=== PATIENT | female | born 1965 | race Caucasian/White ===

== ENCOUNTER 2019-05-25 04:52 | Day surgery (SDC) | payer OTHER ==
[2019-05-21 17:48] VITALS: BMI 26.5
[2019-05-25] MEDS ORDERED: fentaNYL CITRATE 250 MCG/5 ML VIAL ONE (07:29)
[2019-05-25] MEDS ORDERED: PROPOFOL 20 ML ONE ×6 (07:29→09:48)
[2019-05-25] MEDS ORDERED: ROCURONIUM BROMIDE 50 MG/5 ML SYRINGE ONE ×2 (07:29→08:42)
[2019-05-25] MEDS ORDERED: SUCCINYLCHOLINE CHLORIDE 200 MG/10 ML SYRINGE ONE (07:30)
[2019-05-25] MEDS ORDERED: ROPIVACAINE HCL 0.5% 30ML VIAL ONE (07:31)
[2019-05-25] MEDS ORDERED: MIDAZOLAM HCL 2 MG/2 ML SINGLE DOSE VIAL ONE ×3 (07:32→07:39)
[2019-05-25] MEDS ORDERED: PHENAZOPYRIDINE HCL 100 MG TABLET (FP) PO ONE (07:47)
[2019-05-25] MEDS ORDERED: CEFAZOLIN 2 GM/D5W 2 GM/50 ML ML IVPB ONE (07:47)
--- NOTE | 2019-05-25 07:52 | HP ---
History & Physical Update - History History: No Change - Physical Physical: No Change - Assessment Assessment: No Change - Plan Plan: No Change (Full H&P in paper chart from 05/21/19)
[2019-05-25] MEDS ORDERED: DESFLURANE GAS 240 ML BOTTLE IH ONE (08:05)
[2019-05-25] MEDS ORDERED: ceFAZolin 2 GRAM PREMIX BAG IVPB ONE (08:20)
[2019-05-25] MEDS ORDERED: DEXAMETHASONE SOD PHOSPHATE 4 MG/1 ML VIAL ONE ×2 (08:42→09:48)
[2019-05-25] MEDS ORDERED: GLYCOPYRROLATE 0.2 MG/1 ML VIAL ONE (08:42)
[2019-05-25] MEDS ORDERED: LIDOCAINE HCL/PF 2% SDV 5ML VIAL ONE ×2 (08:42→09:40)
[2019-05-25] MEDS ORDERED: ceFAZolin SODIUM 1 GM VIAL ONE (08:42)
[2019-05-25] MEDS ORDERED: KETOROLAC TROMETHAMINE 30 MG/1 ML VIAL ONE (08:42)
[2019-05-25] MEDS ORDERED: NEOSTIGMINE METHYLSULFATE 0.5 MG/ML - 10 ML MDV ONE (09:35)
[2019-05-25] MEDS ORDERED: ONDANSETRON 4 MG/2 ML VIAL IVPUSH PRN (10:01)
[2019-05-25] MEDS ORDERED: oxyCODONE HCL 5 MG TABLET PO PRN ×4 (10:01→10:50)
[2019-05-25] MEDS ORDERED: DOCUSATE SODIUM 100 MG CAPSULE (FP) PO PRN (10:01)
[2019-05-25] MEDS ORDERED: ACETAMINOPHEN 325 MG TABLET (FP) PO PRN (10:01)
[2019-05-25] MEDS ORDERED: BISACODYL 5 MG TABLET.DR (FP) PO PRN (10:01)
--- NOTE | 2019-05-25 10:10 | OP ---
<Harpreet Vitale - Last Filed: 05/25/19 10:04> Operative Note - Note: Operative Date: 05/25/19 Pre-Operative Diagnosis: Fibroid uterus Operation: Robotic assisted hysterectomy and bilateral salpingectomy Post-Operative Diagnosis: Same as Pre-op Surgeon: Kerrie Miller Pet Counselor: Harpreet Vitale Anesthesiologist/PACKAGE WORKER: Jean Carlos Barton Anesthesia: General Estimated Blood Loss (mls): 100 Operative Report Dictated: Yes <Kerrie Miller - Last Filed: 05/26/19 08:39> Operative Note - Note: Operation: Robotic laparosacopic Total Hysterectomy. Bilateral salpingectomy Operative Report Dictated: Yes
[2019-05-25] MEDS ORDERED: traMADol HCL 50 MG TABLET PO PRN (10:50)
[2019-05-25] MEDS ORDERED: LACTATED RINGERS SOLUTION 1,000 ML IV SCH (11:00)
--- NOTE | 2019-05-25 15:53 | SURG ---
Surgery Guidance Services Coordinator Note Guidance Services Coordinator: Harpreet Vitale PA-C Date of Service: 05/25/19 Diagnosis: Fibroid uterus Procedure: Robotic assisted hysterectomy and bilateral salpingectomy I was present for the entirety of the operative procedure. For further detail, please refer to operative report. Visit type - Case Type Case Type: Scheduled - Emergency Emergency Visit: No - New patient This patient is new to me today: Yes Date on this admission: 05/25/19 - Critical Care Critical Care patient: No
[2019-05-25] MEDS: CEFAZOLIN 1 GM/D5W 1 GM/50 ML BAG IVPB SCH (17:45)
[2019-05-25] MEDS ORDERED: CEFAZOLIN 1 GM in DEXTROSE 5%-WATER - 50 ML IVPB SCH (18:00)
[2019-05-25 18:10] LABS: HEMATOCRIT 34.6 % (32.4-45.2); HEMOGLOBIN 11.5 GM/dL (10.7-15.3); MCH 33.7 pg (25.7-33.7); MCHC 33.2 g/dl (32.0-36.0); MEAN CELL VOLUME 101.6 fl (80-96); MEAN PLT VOLUME 8.4 fl (7.5-11.1); PLATELET COUNT 214 K/MM3 (134-434); RDW 13.4 % (11.6-15.6); WHITE BLOOD COUNT 7.9 K/mm3 (4.0-10.0)
[2019-05-25] MEDS: IBUPROFEN 800 MG/8 ML IJ IVPB PRN (18:24)
[2019-05-25 18:27] LABS: BLOOD UREA NITROGEN 12.5 mg/dL (7-18); CALCIUM 8.6 mg/dL (8.5-10.1); CREATININE 0.9 mg/dL (0.55-1.3); POTASSIUM 4.6 mmol/L (3.5-5.1)
[2019-05-26] MEDS: CEFAZOLIN 1 GM/D5W 1 GM/50 ML BAG IVPB SCH ×2 (01:17→09:35)
[2019-05-26] MEDS: IBUPROFEN 800 MG/8 ML IJ IVPB PRN (04:42)
[2019-05-26] MEDS: SIMETHICONE 80 MG TAB.CHEW (FP) PO PRN ×2 (06:28→09:35)
[2019-05-26 08:27] LABS: HEMATOCRIT 29.7 % (32.4-45.2); HEMOGLOBIN 10.1 GM/dL (10.7-15.3); MCH 34.1 pg (25.7-33.7); MEAN CELL VOLUME 100.4 fl (80-96); MEAN PLT VOLUME 8.2 fl (7.5-11.1); PLATELET COUNT 191 K/MM3 (134-434); RBC 2.96 M/mm3 (3.60-5.2); RDW 12.9 % (11.6-15.6); WHITE BLOOD COUNT 8.4 K/mm3 (4.0-10.0)
--- NOTE | 2019-05-26 08:29 | DS ---
"Physical Exam: SUBJECTIVE: Patient seen and examined this am. Tolerating a clear liquid diet, no nausea or emesis. Passing flatus. Mcconnell removed this am and she is due to void. OBJECTIVE: Vital Signs Period Temp Pulse Resp BP Sys/Cheng Pulse Ox Last 24 Hr 98 F-99.1 F 64-92 10-22 104-140/54-81 99-100 PHYSICAL EXAM GENERAL: The patient is awake, alert, and fully oriented, in no acute distress. LUNGS: Breath sounds equal, clear to auscultation bilaterally, no wheezes, no crackles, no accessory muscle use. HEART: Regular rate and rhythm, S1, S2 without murmur, rub or gallop. ABDOMEN: Soft, nondistended, Incisional tenderness. Inc/c/d/i with bandaids. EXTREMITIES: 2+ pulses, warm, well-perfused, no edema. no calf tenderness or swelling noted. LABS Laboratory Results - last 24 hr 05/25/19 05/25/19 17:45 17:45 WBC 7.9 RBC 3.40 L Hgb 11.5 Hct 34.6 MCV 101.6 H MCH 33.7 MCHC 33.2 RDW 13.4 Plt Count 214 D MPV 8.4 Sodium 138 Potassium 4.6 Chloride 105 Carbon Dioxide 27 Anion Gap 6 L BUN 12.5 Creatinine 0.9 Est GFR (CKD-EPI)AfAm 82.84 Est GFR (CKD-EPI)NonAf 71.48 Random Glucose 198 H Calcium 8.6 HOSPITAL COURSE: The patient was admitted to the Med-Surg Unit after an elective repair of her leiomyomas/pelvic pain. Now, s/p robotic hysterectomy and bilateral salpingectomy. Pain management was achieved with a narcotic and non-narcotic oral and IV regimen. POD #1, the patient passed flatus and diet was advanced. Hemoglobin and hematocrit were monitored as well as vitals and remained stable throughout admission. Ute-operative IV ABX were administered. DVT prophylaxis was achieved with Lovenox 40mg qd, SCDs and early ambulation. The patient ambulated the halls without issue. Narcotic scripts were checked with [facility] [employer] prior to escribe. The discharge instructions and an oral pain management plan were reviewed with the patient. All questions answered. Above plan discussed with Dr. Miller and agreed. Date of Admission:05/25/19 Date of Discharge: 05/26/19 Minutes to complete discharge: 20 Discharge Summary Problems reviewed: Yes Reason For Visit: FIBROIDS/PELVIC PAIN Condition: Stable - Instructions Diet, Activity, Other Instructions: Dr. Kerrie Miller Printing Plate Clerk discharge instructions Physical activity Resume your normal everyday activity as tolerated no heavy lifting or exercise until seen by your surgeon. You may walk unlimited simi of and climb stairs. You may resume driving the car when you feel safe and comfortable behind the wheel. No sexual activity as instructed by Dr. Miller. Wound care If you have a bandage, leave it on, and keep dry for 48-72 hours. After that time discard the outer bandage. If they are tapes on the skin under the out of bandage leave them in place. They will peel off in the next 7 to 10 days. Do Not Peel them off. You may shower the day after surgery. If there are tapes present on the skin, you may shower over them. Diet There are no dietary restrictions. Eat healthy, high-fiber foods. Drink 6 to 8 glasses of liquid each day. This will assist in keeping your bowels are regular. Pain management You may take Ibuprofen (for example, Motrin, Advil etc.) from my pain prescription medication is ordered should be taken as prescribed for moderate to severe pain. Call Dr. Miller for any of the following: Severe pain not relieved by medication Fever of 101 or higher Excessive bleeding or drainage on dressing Inability to urinate Call the office at [phone] for an appointment in seven days. This report was requested by: Lenore Park | Reference #: [id number] Referrals: Kerrie Miller MD [Staff Physician] - Disposition: HOME - Home Medications Comprehensive Discharge Medication List: Ambulatory Orders Lisinopril [Zestril] 40 mg PO DAILY 05/21/19 Oxycodone HCl/Acetaminophen [Percocet 5-325 mg Tablet] 1 - 2 tab PO Q6H PRN #20 tab MDD 8 05/26/19 Prescription Drug Monitoring Program (I-STOP) results: I-STOP reviewed and no issues identified This patient is new to me today: Yes Date on this admission: 05/26/19 Emergency Visit: No Critical Care patient: No - Discharge Referral Referred to [facility] Med [facility] No"
[2019-05-26 08:58] LABS: BLOOD UREA NITROGEN 9.2 mg/dL (7-18); CALCIUM 8.4 mg/dL (8.5-10.1); CREATININE 0.7 mg/dL (0.55-1.3); POTASSIUM 3.7 mmol/L (3.5-5.1)
[2019-05-26] MEDS ORDERED: ENOXAPARIN NA (PORCINE) 40 MG/0.4 ML DISP.SYRIN SQ SCH (10:00)
[2019-05-26] MEDS ORDERED: LISINOPRIL 20 MG TABLET (FP) PO SCH (10:00)
[2019-05-26 10:50] VITALS: BP 127/67; PULSE 78; TEMP 98.3
--- NOTE | 2019-05-26 10:50 | PN ---
HC Provider Note Provider Note: Anesthesia Post Op Note Pt s/p GRTA w/ b/l TAP block for robotic MAXWELL Pt awake alert in NAD Denies n/v, no puritis, no urinary retention Ambul well VSS no apparent anesthesia complications Giovanni Baron.
--- NOTE | 2019-05-26 13:20 | OP ---
DATE OF OPERATION: 05/25/2019 PREOPERATIVE DIAGNOSIS: Leiomyomatous uterus, submucosal myoma, abdominal pain and intramural myomas. OPERATION: Laparoscopic robotic total hysterectomy and bilateral salpingectomy. SURGEON: Martin Ro MD GOLF STUD RIVETER: Harpreet Vitale ANESTHESIOLOGIST: Jean Carlos Barton MD ESTIMATED BLOOD LOSS: 100 mL PROCEDURE: Patient was taken to the operating room and placed in the dorsal lithotomy position, prepped and draped in the usual sterile fashion. A timeout was performed in accordance to the hospital regulation. A speculum was placed in the vagina. Anterior lip of the cervix grasped with the single-tooth tenaculum. The cervix was then dilated to accommodate the large uterine manipulator. The manipulator was placed in the endometrial cavity and around the cervix. A Mcconnell catheter was then inserted. Attention was then drawn to the umbilicus where an 8 mm umbilical incision was made. The Veress needle was inserted into the cavity. Approximately 3 to 4 L of CO2 was insufflated in the cavity. The Veress needle was then removed and the 8 mm trocar was then inserted. Laparoscope and camera revealed the leiomyomatous uterus approximately 12 weeks in size, multiple myomas. A large myoma was noted anteriorly on the right side. Tubes and ovaries were noted to be normal. The vascular areas were seen bilaterally in the area of the infundibulopelvic ligament. Two trocars were then placed on the left side parallel to the umbilical incision approximately 8 to 10 cm apart. A scalpel was then used to make the incision and 8 mm trocars were then inserted under direct visualization. A 5 mm trocar with air-filled camera was inserted in the upper abdomen and 2 trocars were placed on the right side parallel to each other mirroring the left side. Trocars were inserted under direct visualization after the scalpel had been used to make the 8 mm incision. Each trocar was about 10 cm apart. The da Arcadio robot was then side-docked to the patient's arm and trocars were inserted onto the da Arcadio. A vessel sealer was placed on the left and Endo zachery and tenaculum were placed on the right under direct visualization. The instruments were placed close to the uterus and attention was then drawn to the console where control of the console was then done. Tenaculum was then used to elevate and lift the uterus to the right side. Uteroovarian ligament was identified and clamped and cut. Round ligament was identified and clamped and cut. Uterine arteries were identified and clamped and cut. was then entered and the bladder was then bluntly dissected out of the operative field. Cardinal ligament was identified and clamped and cut down to the level of the cervix. The Endo zachery were then used to make an incision into the vagina. The same procedure was repeated on the right side. The tenaculum was then used to elevate the uterus to the left side and the right uteroovarian ligament was identified and clamped and cut. A large myoma was noted on the right side and Endo zachery were then used to cut the serosa and remove the myoma to operate and the myoma was then removed out of the uterus. Approximately 8 cm myoma was removed. The uteroovarian ligament was identified, clamped and cut. Uterine vessels were identified and clamped and cut. The was entered and the bladder was bluntly dissected again on the right side out of the operative field. Ureter was identified and found to have peristalsis bilaterally. was then used to the level of the vagina and was identified and clamped and cut and the vagina was then circumferentially opened and the cervix was then removed. Cervix was removed through the vagina. Tubes were identified and clamped and cut bilaterally. Ovaries were kept in place and found to be normal. The ureter was identified again and found to be peristaltic. The 2-0 V-Loc suture was entered into the abdominal field and the da Arcadio robot was then used to close the vaginal cuff in a continuous fashion. Hemostasis was achieved. The needle was then removed through one of the trocars. After hemostasis had been achieved and peristalsis was found to be vigorous on both the left and the right side, all instruments were then removed. CO2 was removed from the abdomen. The incisions were then closed using a 3-0 Vicryl in a subcuticular fashion. The wound was washed and dressed. Patient tolerated the procedure well. Estimated blood loss was 100 mL. MARTIN RO M.D. [id number]
--- NOTE | 2019-05-28 17:16 | PATH ---
Surgical Pathology Report Patient Name: EDDIE AUGUSTE [facility]. Rec. #: [id number] /Age/Gender: 1965 (Age: 54) / F Account: [id number] Location: AMBULATORY SURG Taken: 05/25/2019 Received: 05/25/2019 Reported: 05/28/2019 Physicians: Kerrie Miller M.D. Specimen(s) Received A: UTERUS B: UTERINE FIBROIDS C: LEFT FALLOPIAN TUBE D: RIGHT FALLOPIAN TUBE Clinical History Fibroids / Pelvic pain Final Diagnosis A. UTERUS, HYSTERECTOMY: LEIOMYOMATA. FOCAL ADENOMYOSIS. WEAKLY PROLIFERATIVE ENDOMETRIUM. CERVIX WITH SQUAMOUS METAPLASIA.. B. UTERINE FIBROIDS, REMOVAL: TWO PORTIONS OF LEIOMYOMA, 67 GRAMS. C. LEFT FALLOPIAN TUBE, SALPINGECTOMY: PORTION OF FALLOPIAN TUBE WITH PARATUBAL CYSTS. D. RIGHT FALLOPIAN TUBE, SALPINGECTOMY: PORTION OF FALLOPIAN TUBE WITH PARATUBAL CYST. Electronically Signed Juan Carlos Parikh M.D. Gross Description A. Received in formalin labeled "uterus" is a 78 g uterus with an attached cervix and one portion of left fallopian tube without fimbria. The specimen measures 8.5 cm from superior to inferior, 5.0 cm from anterior to posterior, and 3.0 cm from left to right. The serosa is salcido-pink and smooth. The attached cervix measures 2.6 cm in length and averages 2.1 cm in diameter. The ectocervix is salcido-pink, smooth and glistening. The endocervix is unremarkable. The endometrial cavity measures 3.5 cm in length and averages 2.8 cm from cornu to cornu. The endometrium is salcido-red and measures up to 0.1 cm in thickness. The myometrium displays multiple submucosal, intramural and subserosal nodules, ranging from 0.7 cm 0.6 cm in greatest dimension. The cut surface of the nodules is salcido and rubbery with whorled architecture. The remaining myometrium is salcido-pink and measures up to 1.2 cm in thickness. The left non- fimbriated fallopian tube measures 2.3 cm in length and 0.4 cm in diameter. The outer surface is calero purple and smooth. Sectioning reveals an unremarkable lumen. Department Store Manager sections are submitted in 10 cassettes as follows: 1-anterior cervix; 2-posterior cervix; 6-3-jaakbtff endomyometrium; 4-4-mwvqmeiuz endomyometrium with submucosal nodule; 7-9- nodules; 10-portion of left fallopian tube. B. Received in formalin labeled "uterine fibroid," are 2 portions of nodular soft tissue measuring 3 cm and 5.5 cm in greatest dimension, respectively. The nodules weigh 67 g. The cut surface of the nodules is salcido and rubbery with whorled architecture. No hemorrhage or necrosis identified. Department Store Manager sections submitted in 5 cassettes. 1-2: Smaller nodule; 3-4: Larger nodule. C. Received in formalin labeled "left fallopian tube," is a portion of salcido-pink tube with attached fimbria measuring 3 cm and 0.4 cm in diameter. Serial sections reveal unremarkable lumen. Department Store Manager sections submitted one cassette. D. Received in formalin labeled "right fallopian tube," is a portion of salcido-pink tube with attached fimbria measuring 3 cm and 0.4 cm in diameter. Serial sections reveal unremarkable lumen. Department Store Manager sections submitted one cassette. __ KWS/05/26/2019 kathy/05/26/2019
== END 2019-05-26 13:20 | disposition home or self-care (01) ==
LOC: JASUSAT 04:52 → J3W 14:55 → JASUSAT 05-26 13:20
PROVIDERS: ATTEND Obstetrics & Gynecology
PROC: 8E0W4CZ Robotic Assisted Procedure of Trunk Region, Percutaneous Endoscopic Approach (ICD-10-PCS; 2019-05-25)
PROC: 0UT9FZZ Resection of Uterus, Via Natural or Artificial Opening With Percutaneous Endoscopic Assistance (ICD-10-PCS; principal; 2019-05-25 07:30)
PROC: 0UT7FZZ Resection of Bilateral Fallopian Tubes, Via Natural or Artificial Opening With Percutaneous Endoscopic Assistance (ICD-10-PCS; 2019-05-25 07:30)
DX: D25.9 Leiomyoma of uterus, unspecified (principal); N80.0 Endometriosis of uterus; N83.8 Other noninflammatory disorders of ovary, fallopian tube and broad ligament
CPT/HCPCS: 58552; S2900; 36415; 80048; 84703; 85027; 86850; 86900; 86901; 94010; 94760